=== PATIENT | female | born 1950 ===

== ENCOUNTER 2021-02-26 13:45 | Emergency (ER) | payer MEDICARE, OTHER ==
[~2021-02-26] VITALS: Ht 157.5 cm; Wt 36.3 kg
[~2021-02-26 13:45] MED LIST: DIGO250T4 PO; METF-440 PO; OMEP40CA21 PO; VERA240T87 PO; WARF4TAB41 PO
--- NOTE | 2021-02-26 14:02 | NUR ---
- Antwan Gore [phone]
--- NOTE | 2021-02-26 14:10 | NUR ---
pablo ivoryd, drainedd 2100 ml dark color urine.
[2021-02-26 14:18] LABS: HEMATOCRIT 28.4 % (31.2-41.9); MEAN CORPUSCULAR HEMOGLOBIN 29.7 uug (24.7-32.8); MEAN CORPUSCULAR VOLUME 89.4 fL (75.5-95.3); PLATELET COUNT (AUTO) 953 K/uL (179-408)
[2021-02-26 14:24] LABS: CREATININE 0.8 mg/dL (0.6-1.3)
[2021-02-26 14:26] LABS: POTASSIUM 5.8 mmol/L (3.5-5.1)
[2021-02-26 14:29] LABS: BILIRUBIN,DIRECT 0.1 mg/dL (0.0-0.2); BILIRUBIN,TOTAL 0.3 mg/dL (0.2-1.0)
[2021-02-26 14:32] LABS: *BLOOD, URINE 2+ (NEGATIVE); *COLOR,URINE YELLOW (YELLOW); *KETONES,URINE 1+ (NEGATIVE); *UROBILINOGEN,URINE 0.2 E.U./dl (NORMAL); LEUKOCYTE ESTERASE ,URINE NEGATIVE (NEGATIVE); NITRITE, URINE NEGATIVE (NEGATIVE); PH,URINE 5.5 (5.0-8.0)
[2021-02-26 14:34] LABS: UGLUCOSE 3+ (NEGATIVE)
[2021-02-26 14:35] LABS: *BILIRUBIN,URIN 1+ (NEGATIVE)
[2021-02-26 14:44] LABS: *CLARITY,URINE SLIGHTLY HAZY (CLEAR)
[2021-02-26 14:45] LABS: BACTERIA,URINE FEW /HPF (NONE SEEN); RBC,URINE 20-50 /HPF (0-3); SQUAMOUS EPITHELIAL CELL,UR FEW /HPF (NONE SEEN)
[2021-02-26] MEDS ORDERED: IV LACTATED RINGERS SOLUTION 1,000 ML IV PRN ×2 (14:45→17:15)
[2021-02-26] MEDS ORDERED: levoFLOXacin 750 MG/D5W 150 ML PIGGYBACK IV ONE (14:45)
[2021-02-26] MEDS ORDERED: levoFLOXacin 750MG/D5W 150 ML IV ONE (14:58)
--- NOTE | 2021-02-26 15:09 | NUR ---
CONTACTED BY PHONE, HE IS TO BRING LIST OF MEDS SOON HE CAN.
--- NOTE | 2021-02-26 16:09 | NUR ---
pt's here talking to DR. Abernathy.
[2021-02-26] MEDS ORDERED: LISI10TA29 PO (17:11)
[2021-02-26] MEDS ORDERED: DIAZ5TAB4 PO (17:11)
[2021-02-26] MEDS ORDERED: EZET10TA15 PO (17:11)
[2021-02-26] MEDS ORDERED: FENO200C PO (17:11)
[2021-02-26] MEDS ORDERED: PROC10TA13 PO (17:11)
[2021-02-26] MEDS ORDERED: WARF-58 PO (17:11)
[2021-02-26] MEDS ORDERED: OMEG1CAP PO (17:11)
[2021-02-26] MEDS ORDERED: VERA180C3 PO (17:11)
[2021-02-26] MEDS ORDERED: WARF4TAB72 PO (17:11)
[2021-02-26] MEDS ORDERED: CALC-343 PO (17:11)
[2021-02-26] MEDS ORDERED: HYDR4TAB4 PO (17:11)
[2021-02-26] MEDS ORDERED: SITA1TAB6 PO (17:11)
[2021-02-26] MEDS ORDERED: OMEP40CA21 PO (17:11)
[2021-02-26] MEDS ORDERED: CHOL500062 PO (17:11)
[2021-02-26] MEDS ORDERED: EMPA25TA PO (17:11)
[2021-02-26] MEDS ORDERED: MORP30TA7 PO (17:11)
[2021-02-26] MEDS ORDERED: MULT-594 PO (17:11)
[2021-02-26] MEDS ORDERED: DOXE50CA4 PO (17:11)
[2021-02-26] MEDS ORDERED: GABA-536 PO (17:11)
[2021-02-26] MEDS ORDERED: ALBU2.5V38 IH (17:11)
[2021-02-26] MEDS ORDERED: ONDANSETRON 4 MG/2 ML VIAL IV PRN (17:15)
[2021-02-26] MEDS ORDERED: levoFLOXacin 500 MG/D5W 500 MG in PREMIXED 1 EACH IV SCH (17:15)
[2021-02-26] MEDS ORDERED: HYDROMORPHONE 1 MG/1 ML DISP.SYRIN IV PRN (17:15)
[2021-02-26] MEDS ORDERED: MAGNESIUM HYDROXIDE 30 ML LIQUID UDC PO PRN (17:15)
[2021-02-26] MEDS ORDERED: Z GUARD REMEDY PASTE 57 GM TUBE TOP PRN (17:15)
[2021-02-26] MEDS ORDERED: ACETAMINOPHEN 325 MG TABLET PO PRN (17:15)
[2021-02-26] MEDS ORDERED: INSULIN REGULAR, HUMAN 300 UNIT/3 ML VIAL SQ PRN (19:00)
[2021-02-26] MEDS ORDERED: DEXTROSE 50% 50 ML DISP.SYRIN IV PRN (19:00)
[2021-02-26] MEDS ORDERED: PHYTONADIONE 10 MG/1 ML AMPUL IM ONE (19:00)
[2021-02-26] MEDS ORDERED: BLOOD SUGAR DIAGNOSTIC 1 EACH STRIP VI SCH (21:00)
--- NOTE | 2021-02-26 21:10 | NUR ---
Pt's at bedside, requested for pain medications for his .
[2021-02-26] MEDS ORDERED: HYDROMORPHONE 1 MG/1 ML DISP.SYRIN ONE (21:24)
--- NOTE | 2021-02-26 21:27 | NUR ---
Dr. Vieyra notified of patient asystole. Pt is DNR/DNI.
--- NOTE | 2021-02-26 21:28 | NUR ---
Dr. Lutz pronounced pt at [id number].
--- NOTE | 2021-02-26 21:34 | NUR ---
Notified Ebony Gutierrez NP of patient .
--- NOTE | 2021-02-26 21:59 | NUR ---
Called [facility], spoke with Rob, reference number [id number], states due to cancer, unable to accept patient's tissues or organs.
--- NOTE | 2021-02-26 22:08 | NUR ---
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
--- NOTE | 2021-02-26 23:09 | NUR ---
Called patient's at the phone number listed , number is no longer in service.
--- NOTE | 2021-02-27 00:15 | NUR ---
Mortuary arrived to to transport body to [facility].
[2021-02-27] MEDS ORDERED: PANTOPRAZOLE SODIUM 40 MG TABLET.DR PO SCH (07:00)
[2021-02-27] MEDS ORDERED: VERAPAMIL SR 120 MG TABLET.SA PO SCH (09:00)
[2021-02-27] MEDS ORDERED: DIGOXIN 250 MCG TABLET PO SCH (09:00)
== END 2021-02-26 21:28 ==
LOC: ER 13:48
DX: A41.9 Sepsis, unspecified organism (principal); N39.0 Urinary tract infection, site not specified; E86.0 Dehydration; E87.5 Hyperkalemia; E87.2 Acidosis; G92 Toxic encephalopathy; R65.20 Severe sepsis without septic shock; Z66 Do not resuscitate; D68.61 Antiphospholipid syndrome; E43 Unspecified severe protein-calorie malnutrition; Z68.1 Body mass index [BMI] 19.9 or less, adult; M32.9 Systemic lupus erythematosus, unspecified; Z20.822 Contact with and (suspected) exposure to COVID-19; R00.0 Tachycardia, unspecified; M89.9 Disorder of bone, unspecified; T45.515A Adverse effect of anticoagulants, initial encounter; Y92.89 Other specified places as the place of occurrence of the external cause; E11.65 Type 2 diabetes mellitus with hyperglycemia; I10 Essential (primary) hypertension; R62.7 Adult failure to thrive; R33.9 Retention of urine, unspecified; Z88.0 Allergy status to penicillin; Z88.2 Allergy status to sulfonamides; Z79.84 Long term (current) use of oral hypoglycemic drugs; Z79.01 Long term (current) use of anticoagulants; K76.9 Liver disease, unspecified; R79.89 Other specified abnormal findings of blood chemistry; J98.11 Atelectasis; D64.9 Anemia, unspecified; E87.1 Hypo-osmolality and hyponatremia; C34.90 Malignant neoplasm of unspecified part of unspecified bronchus or lung; F17.200 Nicotine dependence, unspecified, uncomplicated
CPT/HCPCS: 36415; 51702; 70450; 71045; 80048; 80076; 81001; 83605 ×2; 84145; 84484; 85025; 85730; 87040 ×2; 87086; 87426; 93005; 96365; 96366; 96375; 99291; J1170; J1956; J7120; 70030-TC; A4663; J7030